=== PATIENT | male | born 1960 | race Caucasian/White ===

== ENCOUNTER → 2019-03-22 | Outpatient (CLI) | payer BC ==
--- NOTE | 2019-03-22 12:34 | Diagnostic Imaging Report ---
INDICATION: Prior history of cholesteatoma on the left, approximately 25 years ago. Patient complains of intermittent dizziness. TECHNIQUE: Axial imaging through the IACs was performed without contrast. Sagittal and coronal reformations were also performed. FINDINGS: The external auditory canals are unremarkable bilaterally. There is no evidence of scutum erosion on either side. No significant tympanic membrane thickening is seen. Middle ear cavity does show the ossicles to be unremarkable. No ossicular erosion or mass is detected. The epitympanum, mesotympanum, and hypotympanum are unremarkable. Inner ear demonstrates internal auditory canals to be unremarkable. The vestibule and semicircular canals appear unremarkable. There appear to be normal turns of the cochlea bilaterally. Mastoid air cells appear to be well aerated. IMPRESSION: Unremarkable CT of the IACs. There is no evidence of cholesteatoma recurrence. Dictated by: Dictated on workstation # [id number]
== END ==
LOC: RAD FS 08:45
PROVIDERS: ATTEND Otolaryngology Otolaryngology/Facial Plastic Surgery
DX: R42 Dizziness and giddiness (principal); Z86.69 Personal history of other diseases of the nervous system and sense organs
CPT/HCPCS: 70480

== ENCOUNTER → 2020-03-27 | Outpatient (CLI) | payer BC ==
--- NOTE | 2020-03-27 15:09 | Diagnostic Imaging Report ---
INDICATION: Increasing left shoulder pain. TIME OF EXAM: 03:01 p.m. FINDINGS: Three views of the left shoulder were obtained. Glenohumeral and acromioclavicular alignment are normal. Acromiohumeral space is normal. No fracture or dislocation is seen. There are glenohumeral joint degenerative changes. IMPRESSION: Degenerative changes. No acute bony abnormality is detected. Dictated by: Dictated on workstation # [id number]
== END ==
LOC: LAB FS 14:33
PROVIDERS: ATTEND Family Medicine
DX: M19.012 Primary osteoarthritis, left shoulder (principal); R20.0 Anesthesia of skin
CPT/HCPCS: 36415; 73030; 82607; 84443; 86038

== ENCOUNTER → 2020-04-02 | Outpatient (CLI) | payer BC ==
--- NOTE | 2020-04-02 09:29 | Diagnostic Imaging Report ---
PROCEDURE: MRI left upper extremity without contrast. TECHNIQUE: Multiplanar, multisequence non contrast-enhanced MRI of the left upper extremity was accomplished. INDICATION: Shoulder pain There are no prior MRI examinations available for comparison. The plain film examination of the left shoulder performed on 03/27/2020 failed to show any sign of an acute bony abnormality. There was degenerative disease of the glenohumeral joint and to a lesser extent the acromioclavicular joint. On the T2 fat saturated series, there is a poorly defined area of altered signal within the substance of the rotator cuff. This finding may may be secondary to tendinosis as opposed to a partial tear. The bursal aspect of the rotator cuff is somewhat irregular, may be frayed. However the supraspinatus muscle is not retracted or bunched. There is hypertrophy of the acromioclavicular joint and this does result in narrowing of the outlet for the supraspinatous muscle. There is also a trace amount of fluid in the subacromial subdeltoid bursa this does suggest that there is an amount of mild inflammation present. The biceps tendon and the subscapularis tendon are intact. The inferior half of the labrum is torn on a degenerative basis. There is subchondral cyst formation along the anterior labrum. There is a small joint effusion present. There is no sign of an acute bony abnormality. However there is moderately diffusely increased signal throughout the musculature of the teres minor. There is also an increased signal in this area which could represent a small partial tear. IMPRESSION: 1. There is tendinosis of the rotator cuff but the supraspinatous muscle is not retracted or bunched. The trace amount of fluid in the subacromial and subdeltoid bursal also suggests that there is an element of mild inflammation present. 2. There is hypertrophy of the acromioclavicular joint and this does result in narrowing of the outlet for the supraspinatous muscle. 3. The inferior half of the labrum is torn on a degenerative basis. 4. There is no acute bony abnormality noted. 5. There is edema/inflammation throughout the teres minor muscle. There may also be a small partial tear of the muscle itself. Dictated by: Dictated on workstation # [id number]
== END ==
LOC: RAD 07:48
PROVIDERS: ATTEND Family Medicine
DX: S43.402A Unspecified sprain of left shoulder joint, initial encounter (principal); M19.012 Primary osteoarthritis, left shoulder; M89.312 Hypertrophy of bone, left shoulder; M75.82 Other shoulder lesions, left shoulder; X58.XXXA Exposure to other specified factors, initial encounter
CPT/HCPCS: 73221

== ENCOUNTER → 2020-08-16 | Outpatient (CLI) | payer BC | LOC: LAB FS 08:09 | PROVIDERS: ATTEND Psychiatry & Neurology Neurology | DX: G95.9 Disease of spinal cord, unspecified (principal) | CPT/HCPCS: 36415; 82607; 84443 ==

== ENCOUNTER → 2020-10-09 | Outpatient (CLI) | payer BC | LOC: LAB FS 10:22 | PROVIDERS: ATTEND Family Medicine | DX: M79.642 Pain in left hand (principal); M79.641 Pain in right hand | CPT/HCPCS: 36415; 86200 ==

== ENCOUNTER → 2021-05-19 | Outpatient (CLI) | payer BC | LOC: LAB FS 14:05 | PROVIDERS: ATTEND Family Medicine | DX: N52.39 Other and unspecified postprocedural erectile dysfunction (principal) | CPT/HCPCS: 36415; 84402; 84403 ==

== ENCOUNTER → 2021-08-06 | Outpatient (CLI) | payer BC ==
--- NOTE | 2021-08-06 10:23 | Diagnostic Imaging Report ---
INDICATION: PRE-OP FOOT SURGERY COMPARISON: 03/27/2020 FINDINGS: Frontal and lateral views of the chest demonstrate normal heart size and pulmonary vascularity. The lungs are clear. There are no signs of infiltrate, pleural effusions or pneumothoraces. The visualized osseous structures show no acute abnormalities. IMPRESSION: 1. No acute process. No signs of infiltrates, effusions or pneumothoraces. Dictated by: Dictated on workstation # [id number]
== END ==
LOC: RAD FS 09:15
PROVIDERS: ATTEND Podiatrist Foot & Ankle Surgery
DX: Z01.812 Encounter for preprocedural laboratory examination (principal); Z01.811 Encounter for preprocedural respiratory examination
CPT/HCPCS: 71046

== ENCOUNTER → 2021-08-13 | Outpatient (CLI) | payer BC ==
[2021-08-13 08:43] LABS: HEMATOCRIT 49 % (40-54); HEMOGLOBIN 16.7 g/dL (13.3-17.7); MEAN CORPUSCULAR HEMOGLOBIN 30 pg (25-34); MEAN CORPUSCULAR HGB CONC 34 g/dL (32-36); MEAN CORPUSCULAR VOLUME 87 fL (80-99); WHITE BLOOD COUNT 5.6 10^3/uL (4.3-11.0)
[2021-08-13 08:44] LABS: BASOPHILS # (AUTO) 0.1 10^3/uL (0.0-0.1); BASOPHILS % (AUTO) 1 % (0-10); EOSINOPHILS # (AUTO) 0.3 10^3/uL (0.0-0.3); EOSINOPHILS % (AUTO) 5 % (0-10); LYMPHOCYTES % (AUTO) 23 % (12-44); MEAN PLATELET VOLUME 10.5 fL (9.0-12.2); MONOCYTES # (AUTO) 0.6 X 10^3 (0.0-1.0); MONOCYTES % (AUTO) 10 % (0-12); NEUTROPHILS # (AUTO) 3.4 X 10^3 (1.8-7.8); NEUTROPHILS % (AUTO) 61 % (42-75); PLATELET COUNT 142 10^3/uL (130-400)
[2021-08-13 08:45] LABS: LYMPHOCYTES # (AUTO) 1.3 X 10^3 (1.0-4.0)
[2021-08-13 09:22] LABS: CALCIUM 9.2 MG/DL (8.5-10.1); CREATININE SERUM 1.06 MG/DL (0.60-1.30); POTASSIUM 4.5 MMOL/L (3.6-5.0)
== END ==
LOC: LAB FS 08:06
PROVIDERS: ATTEND Podiatrist Foot & Ankle Surgery
DX: Z01.812 Encounter for preprocedural laboratory examination (principal)
CPT/HCPCS: 36415; 80048; 85025

== ENCOUNTER → 2022-01-13 | Outpatient (CLI) | payer BC ==
--- NOTE | 2022-01-13 10:01 | Diagnostic Imaging Report ---
CLINICAL INDICATION: Patient has numbness in both hands. No known injury. EXAM: MRI of the cervical spine without contrast. Sagittal and coronal reformatted images were created. Sequences include sagittal T2, sagittal T1, sagittal T2 fat-sat, and axial T2. COMPARISON: None. FINDINGS: There is no acute cervical spine fracture or dislocation. There are no significant Modic degenerative signal changes. Limited visualization of the posterior fossa and cervical spinal cord is unremarkable. There is no significant paraspinal soft tissue abnormality. C1-C2: Unremarkable. C2-C3: There is mild bilateral facet arthropathy. There is no significant central spinal canal or neuroforaminal narrowing. C3-C4: There is mild bilateral facet arthropathy. There is a small posterior disk spur in the left subarticular region. There is no significant central canal or neuroforaminal narrowing. C4-C5: There is a subtle posterior disk bulge and mild to moderate bilateral facet arthropathy. There is at least mild right neuroforaminal narrowing. There is no significant left neuroforaminal narrowing. There is mild central canal stenosis. C5-C6: There is a diffuse disk bulge with moderate loss of disk space height. There are bilateral uncinate spurs. There is ligamentum flavum buckling and bilateral facet arthropathy. There is severe bilateral neuroforaminal narrowing and severe central canal stenosis. C6-C7: There is a subtle posterior disk bulge with annular tear posteriorly. There is ligamentum flavum buckling and mild bilateral facet arthropathy. There is at least moderate central canal stenosis. There is mild to moderate bilateral neuroforaminal narrowing. C7-T1: There is no significant central spinal canal or neuroforaminal narrowing. IMPRESSION: There is multilevel cervical spine degenerative disk disease which is worse at the C5-C6 and C6-C7 levels as described above. Dictated by: Dictated on workstation # [id number]
== END ==
LOC: RAD 08:45
PROVIDERS: ATTEND Family Medicine
DX: M47.812 Spondylosis without myelopathy or radiculopathy, cervical region (principal); M50.223 Other cervical disc displacement at C6-C7 level; M50.323 Other cervical disc degeneration at C6-C7 level; M48.02 Spinal stenosis, cervical region
CPT/HCPCS: 72141